=== PATIENT | female | born 1965 ===

== ENCOUNTER 2024-02-29 14:48 | Outpatient (AMB) | payer OTHER, SELFPAY ==
--- NOTE | 2024-02-29 14:59 | MHC.OFFVIS ---
Vital Signs 02/29/24 15:00 Height 5 ft 3 in Weight 152 lb 8.958 oz BMI 27.0 BP 138/76 Blood Pressure Location Rt brachial Position Sitting Intake Visit Reasons: Back Pain/cm Allergies No Known Allergies Allergy (Verified 02/29/24 15:02) Medication List - Last Reconciled 02/29/24 by Valeria Shoemaker MD gabapentin 300 mg PO DAILY lidocaine HCl 2% (Lidocaine Viscous) PO triamcinolone acetonide 0.1% dental HPI Comments Details: This is a 58-year-old female with history of psoriatic arthritis who presents as a new patient. She has history of psoriasis since her teens but symptoms are mild, usually on her scalp, small lesions on her extremities. She never required systemic therapy for her psoriasis. About 4 years ago she developed abrupt onset of swelling of her fingers. She was diagnosed with psoriatic arthritis and prescribed Otezla. She stated that the swelling resolved after one-month and she never required any further immune therapy. About 2 years ago she started having discomfort and heaviness he right upper quadrant radiating to the left upper quadrant and radiating downward towards the groin. She had an abdominal ultrasound which showed all bladder stones. She had a cholecystectomy but her symptoms persisted. She had rib x-rays and it was unremarkable. She had a cervical and thoracic spine MRIs, she had moderate to severe cervical degenerative disc disease, she was evaluated by a spine surgeon and was told that surgery can be done but might not help her symptoms. She states that the pain is generally worse in the evening and at night. She was prescribed gabapentin which did help her sleep. She denies any recent weight changes. Her psoriasis has been unchanged, continues to have some lesions in her scalp and small lesions on her extremities. Denies any fevers. Denies any other episodes of swollen joints. She is unaware of any family history of an autoimmune rheumatic disease. [facility] Medical History (Updated 02/29/24 @ 15:50 by Valeria Shoemaker MD) Burning mouth syndrome Psoriasis Surgical History Hx of cholecystectomy Family History Mother Stroke Father Asthma Social History (Updated 02/29/24 @ 15:50 by Valeria Shoemaker MD) Alcohol intake: current Alcohol intake frequency: 0-2 drinks per day Years Smoked: Less than 100 cigarettes in her lifetime Current occupational status: employed Current occupation: assistant terminal manager Female Reproductive History Menstrual Total pregnancies: 1 Full term: 1 Ab induced: 0 Ab spontaneous: 0 Review of Systems Const Denies fever(s), Denies weight gain and Denies weight loss ENT Reports dry mouth GI Reports heartburn Musc Reports back pain and Denies joint swelling Skin/Breast Reports rash Physical Exam Vital Signs: Last Vital Signs BP 138/76 02/29/24 15:00 BMI result Body Mass Index 27.0 Const General: cooperative, healthy appearing and comfortable Nutritional Appearance: overweight Orientation/consciousness: patient oriented x3 Limitations: no limitations HEENT Head: Yes normocephalic and Yes atraumatic Mouth: moist mucous membranes Chest Other: Tenderness at the sternoclavicular joints bilaterally Bilateral lower rib pain laterally Resp Effort & Inspection: normal respiratory effort and able to speak in complete sentences Auscultation: clear to auscultation bilaterally Cardio Rate: regular rate Rhythm: regular rhythm GI Inspection: No distended Palpation (GI): Soft to palpation and nontender Skin Other: Scaly psoriatic patches on scalp behind left ear Tiny patches on extremities Neuro General: patient oriented x3 Extrem Other: No active synovitis Arthritic changes of the DIP joints No nail pitting Normal nailfold capillaroscopy Negative straight leg raise test bilaterally Negative Fabere test bilaterally Normal range of motion of neck without pain Results Reviewed Results Reviewed: MR thoracic spine 12/2023 Impression: 1. Degenerative changes of the thoracic spine results in mild spinal canal stenosis at T6-T7 and T7-T8? 2. Normal cord signal 3. Increased thoracic kyphosis with doubt acute osseous abnormality or compression fracture.?? 4. Exophytic left thyroid nodule measuring at least 1.6 cm.? Recommend further evaluation with a dedicated thyroid ultrasound MR cervical spine 12/2023? Impression: 1. Moderate to severe spinal canal stenosis at C5-C6 and C6-C7 with flattening of the spinal cord.?? 2. Multilevel severe foraminal narrowing.?? 3. Normal cord signal? 4. No acute osseous abnormality or compression fracture Assessment & Plan Assessment & Plan (1) Psoriatic arthritis: Code(s): L40.50 - Arthropathic psoriasis, unspecified Category: Medical Plan: This is a 58-year-old female with long history of psoriasis who presents for evaluation. She was diagnosed with psoriatic arthritis when she had bilateral hand and finger swelling proximally 2019 which was treated with Otezla for 1 month then it never recurred. Over the last 2 years she has been having bilateral upper quadrant abdominal pain that radiates down her groin, ultrasound of the abdomen showed gallstones, she had a cholecystectomy with persistence of her symptoms. She has chest wall tenderness and rib tenderness on exam. I wonder whether patient might have active psoriatic arthritis affecting unusual joints. (such as sternoclavicular joints) Possible SAPHO Will check comprehensive serology better understand her underlying autoimmune rheumatic disease. Check x-rays of hands and feet as well as SI joints. Will order a bone scan to evaluate for increased activity at the sternoclavicular joints. Follow-up in 4-5 weeks Plan I spent 50 minutes reviewing patient's chart, evaluating patient, ordering diagnostic workup, counseling patient and documenting in the chart Orders: Orders Erythrocyte Sedimentation Rate Today M32.9 - Systemic lupus erythematosus, unspecified Hepatitis A,B,C Profile Today Z11.59 - Encounter for screening for other viral diseases Immunofixation Pnl, Serum Today M32.9 - Systemic lupus erythematosus, unspecified Uric Acid Today M25.50 - Pain in unspecified joint Rheumatoid Factor Today M25.50 - Pain in unspecified joint Cyclic Citrullinated Peptide Today M25.50 - Pain in unspecified joint KARLI Reflex Titer and Pattern Today M32.9 - Systemic lupus erythematosus, unspecified Anti Extractable Nuclear Ag Today M32.9 - Systemic lupus erythematosus, unspecified Anti DNA DS Antibody Today M32.9 - Systemic lupus erythematosus, unspecified Complement C4 Today M32.9 - Systemic lupus erythematosus, unspecified UA w Microscopic Today M32.9 - Systemic lupus erythematosus, unspecified XR hand wrist LT Today L40.50 - Arthropathic psoriasis, unspecified XR hand wrist RT Today L40.50 - Arthropathic psoriasis, unspecified XR sacroiliac joint min 3V Today L40.50 - Arthropathic psoriasis, unspecified NM bone scan limited area Today L40.50 - Arthropathic psoriasis, unspecified Angiotensin Converting Enzyme Today D86.9 - Sarcoidosis, unspecified Complete Blood Count Auto Diff Today M32.9 - Systemic lupus erythematosus, unspecified Comprehensive Met. Panel Today M32.9 - Systemic lupus erythematosus, unspecified C Reactive Protein Today M32.9 - Systemic lupus erythematosus, unspecified Protein Electrophoresis, Serum Today M32.9 - Systemic lupus erythematosus, unspecified T Spot TB Today Z11.7 - Encounter for testing for latent tuberculosis infection HLA B27 Today M45.9 - Ankylosing spondylitis of unspecified sites in spine HLA B51 Behcet's Disease Today M35.2 - Behcet's disease Complement C3 Today M32.9 - Systemic lupus erythematosus, unspecified DNA Double Stranded-Crithidia Today M32.9 - Systemic lupus erythematosus, unspecified Protein Creatinine Ratio, Ur Today M32.9 - Systemic lupus erythematosus, unspecified Sjogren's Antibodies Today M32.9 - Systemic lupus erythematosus, unspecified XR foot LT min 3V Today L40.50 - Arthropathic psoriasis, unspecified XR foot RT min 3V Today L40.50 - Arthropathic psoriasis, unspecified Coding Level of Care Code New Pt Level 4 (31260) Medical Decision Making High Complexity Diagnoses Psoriatic arthritis L40.50
[2024-02-29 15:00] VITALS: BP 138/76; BMI 27.0
== END 2024-02-29 15:39 | disposition home or self-care (01) ==
PROVIDERS: PCP Registered Nurse Oncology; Referring Provider Registered Nurse Oncology; Visit Provider Student in an Organized Health Care Education/Training Program
DX: L40.50 Arthropathic psoriasis, unspecified (principal)
CPT/HCPCS: 99204

== ENCOUNTER 2024-02-29 14:48 | Outpatient (REF) | payer OTHER, SELFPAY ==
--- NOTE | ~2024-02-29 | XR_ITS ---
EXAMINATION: XR FOOT, RIGHT XR FOOT, LEFT CLINICAL INFORMATION: Arthropathic psoriasis. COMPARISON: None available. TECHNIQUE: AP, oblique, and lateral views of the right and left foot. FINDINGS: RIGHT FOOT: No acute fracture or dislocation. Mild joint space narrowing with small marginal osteophytes at the first metatarsophalangeal joint and hallux sesamoids. No osseous erosion. Accessory ossicles adjacent to the fifth metatarsal base. No concerning lytic or blastic osseous lesion. LEFT FOOT: No acute fracture or dislocation. Moderate joint space narrowing with bony remodeling at the second metatarsophalangeal joint which could represent a combination of osteoarthritis and metatarsal head subchondral fracture/avascular necrosis. No abnormal soft tissue calcification. XR/XR foot RT min 3V IMPRESSION: RIGHT FOOT: Mild degenerative arthritis at the first metatarsophalangeal joint and hallux sesamoids. LEFT FOOT: Moderate degenerative arthritis at the second metatarsophalangeal joint with bony remodeling which could represent a combination of osteoarthritis and metatarsal head subchondral fracture/avascular necrosis.
--- NOTE | ~2024-02-29 | XR_ITS ---
EXAMINATION: XR SACROILIAC JOINTS CLINICAL INFORMATION: Arthropathic psoriasis. COMPARISON: None available. TECHNIQUE: 3 views of the sacroiliac joints FINDINGS: No significant sacroiliac joint space narrowing. Tiny inferior bilateral sacroiliac marginal osteophytes. No periarticular erosion or evidence of sacroiliitis. No fracture or dislocation. No concerning lytic or blastic osseous lesion. No evidence of femoral head avascular necrosis. Partially visualized degenerative disc disease and facet arthropathy within the lower lumbar spine. Calcified fibroid and phleboliths within the pelvis. XR/XR sacroiliac joint min 3V IMPRESSION: 1. Minimal bilateral sacroiliac degenerative arthritis. 2. Partially visualized degenerative disc disease and facet arthropathy within the lower lumbar spine.
--- NOTE | ~2024-02-29 | XR_ITS ---
EXAMINATION: XR FOOT, RIGHT XR FOOT, LEFT CLINICAL INFORMATION: Arthropathic psoriasis. COMPARISON: None available. TECHNIQUE: AP, oblique, and lateral views of the right and left foot. FINDINGS: RIGHT FOOT: No acute fracture or dislocation. Mild joint space narrowing with small marginal osteophytes at the first metatarsophalangeal joint and hallux sesamoids. No osseous erosion. Accessory ossicles adjacent to the fifth metatarsal base. No concerning lytic or blastic osseous lesion. LEFT FOOT: No acute fracture or dislocation. Moderate joint space narrowing with bony remodeling at the second metatarsophalangeal joint which could represent a combination of osteoarthritis and metatarsal head subchondral fracture/avascular necrosis. No abnormal soft tissue calcification. XR/XR foot LT min 3V IMPRESSION: RIGHT FOOT: Mild degenerative arthritis at the first metatarsophalangeal joint and hallux sesamoids. LEFT FOOT: Moderate degenerative arthritis at the second metatarsophalangeal joint with bony remodeling which could represent a combination of osteoarthritis and metatarsal head subchondral fracture/avascular necrosis.
--- NOTE | ~2024-02-29 | XR_ITS ---
EXAMINATION: XR HAND AND WRIST, RIGHT XR HAND AND WRIST, LEFT CLINICAL INFORMATION: Arthropathic psoriasis. COMPARISON: None available. TECHNIQUE: AP, oblique, lateral, and scaphoid views of the bilateral hand and wrist. FINDINGS: RIGHT HAND AND WRIST: No acute fracture or dislocation. Normal carpal alignment. Mild joint space narrowing with small marginal osteophytes throughout the distal interphalangeal joints. No osseous erosion. No concerning lytic or blastic osseous lesion. No abnormal soft tissue calcification. LEFT HAND AND WRIST: No acute fracture or dislocation. Normal carpal alignment. Mild joint space narrowing with small marginal osteophytes throughout the distal interphalangeal joints. No osseous erosion. No concerning lytic or blastic osseous lesion. No abnormal soft tissue calcification. XR/XR hand wrist LT IMPRESSION: 1. Right hand and wrist: Mild osteoarthritis throughout the distal interphalangeal joints. No osseous erosion. 2. Left hand and wrist: Mild osteoarthritis throughout the distal interphalangeal joints. No osseous erosion.
--- NOTE | ~2024-02-29 | XR_ITS ---
EXAMINATION: XR HAND AND WRIST, RIGHT XR HAND AND WRIST, LEFT CLINICAL INFORMATION: Arthropathic psoriasis. COMPARISON: None available. TECHNIQUE: AP, oblique, lateral, and scaphoid views of the bilateral hand and wrist. FINDINGS: RIGHT HAND AND WRIST: No acute fracture or dislocation. Normal carpal alignment. Mild joint space narrowing with small marginal osteophytes throughout the distal interphalangeal joints. No osseous erosion. No concerning lytic or blastic osseous lesion. No abnormal soft tissue calcification. LEFT HAND AND WRIST: No acute fracture or dislocation. Normal carpal alignment. Mild joint space narrowing with small marginal osteophytes throughout the distal interphalangeal joints. No osseous erosion. No concerning lytic or blastic osseous lesion. No abnormal soft tissue calcification. XR/XR hand wrist RT IMPRESSION: 1. Right hand and wrist: Mild osteoarthritis throughout the distal interphalangeal joints. No osseous erosion. 2. Left hand and wrist: Mild osteoarthritis throughout the distal interphalangeal joints. No osseous erosion.
[2024-02-29 16:27] LABS: MANUAL DIFF FLAG NO
[2024-02-29 17:26] LABS: Appearance Urine Clear; Color Urine Yellow; Glucose Urine UA Negative (Negative); Leukocyte Esterase Urine Small (1+) (Negative); Nitrite Urine Negative (Negative); UMIC TRIGGER UA YES; Urine Blood Negative (Negative); Urine Ketones Negative (Negative); Urine Protein Negative (Neg-Trace)
[2024-02-29 17:35] LABS: Basophils Absolute Auto 0.1 X10*3/uL (0.0-0.2); Basophils Percent Auto 0.7 % (0-2); Eosinophils Absolute Auto 0.1 X10*3/uL (0.0-0.4); Eosinophils Percent Auto 0.9 % (0-4); Hematocrit 40.3 % (37.0-47.0); Hemoglobin 14.5 g/dl (12.0-16.0); Imm Gran Abs Auto 0.02 X10*3/uL (0.00-0.03); Imm Gran Pct Auto 0.2 % (0.0-0.4); Lymphocytes Absolute Auto 3.5 X10*3/uL (1.2-4.9); Lymphocytes Percent Auto 28.4 % (20-40); Mean Corpuscular Hemoglobin 30.7 pg (27.0-33.0); Mean Corpuscular Volume 85.4 fL (80.0-98.0); Mean Platelet Volume 10.7 fL (9.4-12.3); Monocytes Percent Auto 8.1 % (2-11); Neutrophils Absolute Auto 7.7 x10*3/uL (2.0-8.3); Neutrophils Percent Auto 61.7 % (45-73); Platelet Count 341 X10*3/uL (160-400); Red Blood Count 4.72 X10*6/uL (4.20-5.50); Red Cell Distribution Width 12.6 % (11.0-16.0); White Blood Count 12.4 X10*3/uL (4.8-10.8)
[2024-02-29 17:36] LABS: Bacteria Urine None Seen (None Seen); Hyaline Casts Urine 0-2 /LPF (0-2); RBC Urine 0-2 /HPF (0-2); Squamous Epithelial Cell Urine 0-2 /HPF (0-2); WBC Urine 0-5 /HPF (0-5)
[2024-02-29 17:58] LABS: Rheumatoid Factor < 13.0 IU/mL (<15.0)
[2024-02-29 17:58] LABS: Creatinine Urine 33.58 mg/dL; Total Protein Urine Random < 7 mg/dL (<12)
[2024-02-29 17:59] LABS: Alanine Aminotransferase 23 U/L (0-31); Albumin Level 4.7 g/dL (3.5-5.0); Alkaline Phosphatase 76 U/L (39-117); Anion Gap 13 (12-20); Aspartate Amino Transferase 22 U/L (5-31); Bilirubin Total 0.6 mg/dL (0.0-1.0); Blood Urea Nitrogen 17 mg/dL (9-16); C Reactive Protein 0.15 mg/dL (< or = 0.50); Calcium 10.2 mg/dL (8.4-10.2); Carbon Dioxide 27 mmol/L (22-29); Chloride 105 mmol/L (96-108); Estimated Glomerular Filt Rate > 60; Glucose Random 92 mg/dL (60-115); Potassium 3.5 mmol/L (3.3-5.1); Sodium 141 mmol/L (135-145); Total Protein 7.9 g/dL (6.5-8.0); Uric Acid 5.5 mg/dL (2.4-5.7)
[2024-02-29 18:14] LABS: Erythrocyte Sedimentation Rate 5 MM/HR (0-20)
[2024-03-01 03:55] LABS: HBS Num1 0.54 mIU/mL (0-7.99); HBc Num1 0.07 S/CO (0.00-0.79); HBsAGNum1 0.28 S/CO (0.00-0.99); Hepatitis A Antibody IgM 0.15 Index (0-0.79); Hepatitis B Core Antibody Nonreactive (Nonreactive); Hepatitis B Surface Antigen Negative (Negative); ~HepC Num1 0.06 S/CO (0.00-0.79); ~Hepatitis A Antibody IgM Nonreactive (Nonreactive); ~Hepatitis B Surface Antibody NONREACTIVE (Nonreactive); ~Hepatitis C Antibody Nonreactive (Nonreactive)
[2024-03-01 20:09] LABS: Anti DNA DS Antibody <1 IU/mL; Antibody to SS-A Antigen <1.0 NEG AI (<1.0 NEG); Antibody to SS-B Antigen <1.0 NEG AI (<1.0 NEG); SM/Ribonucleoprotein Ab <1.0 NEG AI (<1.0 NEG); Smith Protein <1.0 NEG AI (<1.0 NEG)
[2024-03-01 22:18] LABS: Complement C3 139 mg/dL (83-193)
[2024-03-02 14:09] LABS: Anti Nuclear Antibody Screen NEGATIVE (NEGATIVE)
[2024-03-02 14:44] LABS: Cyclic Citrullinated Peptide <16 UNITS
[2024-03-03 15:43] LABS: HLA B27 Negative (Negative)
[2024-03-05 21:53] LABS: TS Negative Control Passed; TS Panel A 0; TS Panel B 4; TS Positive Control Passed; TSpotTB Negative (Negative)
[2024-03-05 22:12] LABS: Angiotensin Converting Enzyme 23 U/L (9-67)
[2024-03-06 13:38] LABS: Prot Elec - Albumin 4.6 g/dL (3.8-4.8); Prot Elec - Alpha1 0.3 g/dL (0.2-0.3); Prot Elec - Alpha2 0.7 g/dL (0.5-0.9); Prot Elec - Beta 1 0.6 g/dL (0.4-0.6); Prot Elec - Beta 2 0.3 g/dL (0.2-0.5); Prot Elec - Gamma 0.8 g/dL (0.8-1.7); Prot Elec - Total Protein 7.3 g/dL (6.1-8.1)
[2024-03-06 19:17] LABS: HLA B51 Comments See Comments; HLA B51 Method PCR SSOP
[2024-03-07 15:38] LABS: DNAds, Crithidia Antibody Negative (Negative)
[2024-03-07 21:09] LABS: IgA 142 mg/dL (47-310); IgG 1024 mg/dL (600-1640); IgM 97 mg/dL (50-300)
== END 2024-02-29 14:49 | disposition home or self-care (01) ==
LOC: HO.XRAY 14:48
PROVIDERS: PCP Registered Nurse Oncology; Referring Provider Registered Nurse Oncology; Visit Provider Student in an Organized Health Care Education/Training Program
DX: Z11.7 Encounter for testing for latent tuberculosis infection (principal); Z11.59 Encounter for screening for other viral diseases; M32.9 Systemic lupus erythematosus, unspecified; M25.50 Pain in unspecified joint; M35.2 Behcet's disease; D86.9 Sarcoidosis, unspecified; M45.9 Ankylosing spondylitis of unspecified sites in spine; L40.50 Arthropathic psoriasis, unspecified; Z72.89 Other problems related to lifestyle
CPT/HCPCS: 36415; 72202; 73110; 73130; 73630; 80053; 81001; 81374; 82164; 82570; 82784; 84156; 84165; 84550; 85025; 85652; 86038; 86140; 86160; 86200; 86225; 86235; 86255; 86334; 86431; 86481; 86704; 86706; 86709; 86803; 86812; 87340

== ENCOUNTER 2024-03-26 15:25 | Outpatient (AMB) | payer OTHER, SELFPAY ==
--- NOTE | 2024-03-26 15:29 | A.OFFVIS_ITS ---
Vital Signs 03/26/24 15:34 Height 5 ft 3 in Weight 153 lb 14.122 oz BMI 27.3 BP 124/60 Blood Pressure Location Rt brachial Position Sitting Pulse 84 Pulse Source Pulse Oximeter Pulse Oximetry (%) 96 Oxygen Delivery Method Room Air Intake Visit Reasons: PSA/CM Intake Note: Patient presents for PSA. Pain in right rib, looking for a solution. Allergies No Known Allergies Allergy (Verified 03/26/24 15:34) Medication List - Last Reconciled 03/26/24 by Valeria Shoemaker MD gabapentin 300 mg PO DAILY lidocaine HCl 2% (Lidocaine Viscous) PO triamcinolone acetonide 0.1% dental HPI Comments Details: Patient returns for follow-up after completion of her diagnostic workup. She states that she started taking gabapentin different doses. It looks like she has done the best on 600 mg nightly. She is able to fall asleep. And not be in significant pain. She continues to have pain in the her right lower ribs anteriorly that radiates down her abdomen. That is abnormal and uncomfortable sensation of her calves. She is quite stressed and anxious about the situation in [place]. Initial history: This is a 58-year-old female with history of psoriatic ar thritis who presents as a new patient. She has history of psoriasis since her teens but symptoms are mild, usually on her scalp, small lesions on her extremities. She never required systemic therapy for her psoriasis. About 4 years ago she developed abrupt onset of swelling of her fingers. She was diagnosed with psoriatic arthritis and prescribed Otezla. She stated that the swelling resolved after one-month and she never required any further immune therapy. About 2 years ago she started having discomfort and heaviness he right upper quadrant radiating to the left upper quadrant and radiating downward towards the groin. She had an abdominal ultrasound which showed all bladder stones. She had a cholecystectomy but her symptoms persisted. She had rib x- rays and it was unremarkable. She had a cervical and thoracic spine MRIs, she had moderate to severe cervical degenerative disc disease, she was evaluated by a spine surgeon and was told that surgery can be done but might not help her symptoms. She states that the pain is generally worse in the evening and at night. She was prescribed gabapentin which did help her sleep. She denies any recent weight changes. Her psoriasis has been unchanged, continues to have some lesions in her scalp and small lesions on her extremities. Denies any fevers. Denies any other episodes of swollen joints. She is unaware of any family hi story of an autoimmune rheumatic disease. [facility] Medical History Burning mouth syndrome Psoriasis Surgical History Hx of cholecystectomy Family History Mother Stroke Father Asthma Social History Alcohol intake: current Alcohol intake frequency: 0-2 drinks per day Years Smoked: Less than 100 cigarettes in her lifetime Current occupational status: employed Current occupation: registered sales assistant Female Reproductive History Menstrual Total pregnancies: 1 Full term: 1 Ab induced: 0 Ab spontaneous: 0 Review of Systems Const Denies fever(s), Denies weight gain and Denies weight loss ENT Reports dry mouth Musc Reports back pain and Denies joint swelling Psych Reports anxiety Physical Exam Vital Signs: Last Vital Signs Pulse 84 03/26/24 15:34 BP 124/60 03/26/24 15:34 Pulse Ox 96 03/26/24 15:34 Oxygen Delivery Method Room Air 03/26/24 15:34 BMI result Body Mass Index 27.3 Const General: cooperative, healthy appearing and comfortable Nutritional Appearance: overweight Orientation/consciousness: patient oriented x3 Limitations: no limitations HEENT Head: Yes normocephalic and Yes atraumatic Mouth: moist mucous membranes Chest Other: Bilateral lower rib tenderness laterally Resp Effort & Inspection: normal respiratory effort and able to speak in complete sentences Auscultation: clear to auscultation bilaterally Cardio Rate: regular rate Rhythm: regular rhythm GI Inspection: No distended Palpation (GI): Soft to palpation and nontender Skin Other: Scaly psoriatic patches on scalp behind left ear Tiny patches on extremities Neuro General: patient oriented x3 Extrem Other: No active synovitis Arthritic changes of the DIP joints No nail pitting Normal nailfold capillaroscopy Negative straight leg raise test bilaterally Negative Fabere test bilaterally Normal range of motion of neck without pain Assessment & Plan Assessment & Plan (1) Rib pain: Code(s): R07.81 - Pleurodynia Category: Medical Plan: This is a 58-year-old female with long history of psoriasis who presents for evaluation.? She was diagnosed with psoriatic arthritis when she had bilateral hand and finger swelling proximally 2019 which was treated with Otezla for 1 month then it never recurred.? Over the last 2 years she has been having bilateral upper quadrant abdominal pain that radiates down her groin, ultrasound of the abdomen showed gallstones, she had a cholecystectomy with persistence of her symptoms.? She has chest wall tenderness and rib tenderness on exam.? I evaluated patient for inflammatory arthritis.? Comprehensive serology was normal along with normal inflammatory markers.? Multiple x-rays were consistent with degenerative arthritis.? A bone scan did not show any increased uptake, no bull's-eye sign seen in SAPHO. At this time I do not see any signs suggestive of an autoimmune rheumatic process that can explain her symptoms.? Patient states that gabapentin has provided some relief.? It seems that 600 mg nightly is helpful.? Patient requesting a refill.? I will provide patient with a 15 day supply, further refills can be requested from PCP. Follow-up p.r.n. (2) Psoriatic arthritis: Code(s): L40.50 - Arthropathic psoriasis, unspecified Category: Medical Plan: History of psoriatic arthritis affecting her fingers in 2019 treated with Otezla for 1 month without recurrence. Advised patient to return to clinic if she has any recurrence of psoriatic arthritis Follow-up p.r.n. Plan I spent 23 minutes reviewing patient's chart, evaluating patient, placing orders, counseling patient and documenting in the chart Medications: Changed From gabapentin 300 mg PO DAILY To gabapentin 600 mg (2 x 300 mg) PO BEDTIME 30 caps 0RF Coding Level of Care Code Est Pt Level 4 (18526) Diagnoses Rib pain R07.81 Psoriatic arthritis L40.50
[2024-03-26 15:34] VITALS: BP 124/60; PULSE 84; O2SAT 96; BMI 27.3
== END 2024-03-26 16:05 | disposition home or self-care (01) ==
PROVIDERS: PCP Registered Nurse Oncology; Visit Provider Student in an Organized Health Care Education/Training Program
DX: R07.81 Pleurodynia (principal); L40.50 Arthropathic psoriasis, unspecified
CPT/HCPCS: 99214

== ENCOUNTER → 2024-03-26 15:25 | Outpatient (BNVA) | payer OTHER, SELFPAY | PROVIDERS: PCP Registered Nurse Oncology; Visit Provider Student in an Organized Health Care Education/Training Program ==